=== PATIENT | female | born 1980 | race Caucasian/White ===

== ENCOUNTER 2018-02-27 21:33 | Emergency (ER) | payer OTHER ==
[~2018-02-27] VITALS: Ht 162.6 cm; Wt 77.1 kg
[~2018-02-27 21:33] MED LIST: ALBU90OI6 INH; AZIT500 PO; CHRO200 PO; KADIAN PO; METPRE4DP PO; PRODEXEL PO; Valium5 MG PO
[2018-02-27] MEDS ORDERED: GLIP5 PO (22:15)
[2018-02-27] MEDS ORDERED: FAMO20 PO (22:17)
[2018-02-27] MEDS ORDERED: ALBU90OI INH (23:13)
[2018-02-27] MEDS ORDERED: Prednisone20 MG PO (23:13)
[2018-02-27] MEDS ORDERED: BENZ100A PO (23:13)
== END 2018-02-27 23:21 | disposition home or self-care (01) ==
LOC: ER 21:33
DX: J98.01 Acute bronchospasm (principal); G43.909 Migraine, unspecified, not intractable, without status migrainosus; M79.7 Fibromyalgia; Z88.0 Allergy status to penicillin; Z88.1 Allergy status to other antibiotic agents; Z88.6 Allergy status to analgesic agent; Z79.2 Long term (current) use of antibiotics; Z79.899 Other long term (current) drug therapy; Z98.890 Other specified postprocedural states
CPT/HCPCS: 71046; 94640; 99284

== ENCOUNTER → 2018-03-03 | Outpatient (CLI) | payer OTHER ==
[~2018-03-03] MED LIST changes: +ALBU90OI INH; +BENZ100A PO; +FAMO20 PO; +GLIP5 PO; +Prednisone20 MG PO
== END ==
LOC: LAB 17:14 → LAB SHORT 17:14
DX: E11.65 Type 2 diabetes mellitus with hyperglycemia (principal)
CPT/HCPCS: 83036

== ENCOUNTER 2018-06-21 23:22 | Emergency (ER) | payer OTHER ==
[~2018-06-21] VITALS: Ht 162.6 cm; Wt 72.6 kg
[2018-06-22 01:53] LABS: BASOPHILS ABSOLUTE AUTO 0.02 K/mm3 (0.00-0.23); BASOPHILS PERCENT AUTO 0 % (0-2); EOSINOPHILS ABSOLUTE AUTO 0.22 K/mm3 (0.00-0.68); EOSINOPHILS PERCENT AUTO 3 % (0-6); Hematocrit 41.3 % (33.0-51.0); Hemoglobin 14.3 g/dL (11.5-16.0); IMMATURE GRAN ABSOLUTE AUTO 0.07 K/mm3 (0.00-0.10); IMMATURE GRAN PERCENT AUTO 1 % (0-1); LYMPHOCYTES ABSOLUTE AUTO 2.64 K/mm3 (0.84-5.20); LYMPHOCYTES PERCENT AUTO 34 % (21-46); MONOCYTES ABSOLUTE AUTO 0.48 K/mm3 (0.16-1.47); MONOCYTES PERCENT AUTO 6 % (4-13); Mean Corpuscular HGB 27.7 pg (26.0-34.0); Mean Corpuscular HGB Conc 34.6 g/dL (31.5-36.5); Mean Corpuscular Volume 80 fL (80-100); Mean Platelet Volume 10.4 fL (9.1-12.4); NEUTROPHILS ABSOLUTE AUTO 4.31 K/mm3 (1.96-9.15); NEUTROPHILS PERCENT AUTO 56 % (41-73); Platelet Count 233 K/mm3 (150-400); RDW Coefficient Variation 11.9 % (11.7-14.2); RDW Standard Deviation 34.5 fL (35.1-46.3); Red Blood Cell Count 5.16 M/mm3 (3.80-5.20); White Blood Cell Count 7.74 K/mm3 (4.00-11.30)
[2018-06-22 02:08] LABS: Alanine Aminotransfer (ALT/SGP 34 U/L (12-78); Albumin, Blood 3.7 g/dL (3.4-5.0); Albumin/Globulin Ratio 0.8 (0.8-1.8); Alk Phos 47 U/L (50-136); Anion Gap 11 mmol/L (6-16); Aspartate Aminotrans (AST/SGOT 46 U/L (12-37); Bilirubin, Total 0.6 mg/dL (0.1-1.0); Blood Urea Nitrogen 20 mg/dL (8-24); Bun/Creatinine Ratio 32.5 (12.0-20.0); CO2, Blood 24 mmol/L (21-32); Calcium, Blood 8.9 mg/dL (8.5-10.1); Chloride, Blood 103 mmol/L (98-108); Creatinine, Blood 0.62 mg/dL (0.40-1.00); Globulin, Blood 4.5 g/dL (2.2-4.0); Glomerular Filtration Rate >60 (60-); Glucose, Blood 191 mg/dL (70-99); Potassium, Blood 4.2 mmol/L (3.5-5.5); Sodium, Blood 138 mmol/L (136-145); Total Protein, Blood 8.2 g/dL (6.4-8.2)
[2018-06-22 02:54] LABS: Source, Urine Clean Catch
[2018-06-22 03:08] LABS: Bilirubin, Urine Neg (Neg); Blood, Urine 4+ (Neg); Glucose Qualitative, Urine 3+ (Neg); Ketones, Urine Neg (Neg); Leukocyte Esterase, Urine Neg (Neg); Nitrite, Urine Neg (Neg); Protein, Urine 1+ (Neg); Urobilinogen, Urine NORM (Normal)
[2018-06-22 03:12] LABS: Appearance, Urine Clear (Clear); Color, Urine Yellow (P-Yellow)
[2018-06-22 03:27] LABS: Bacteria Rare /hpf; Red Blood Cells, Urine Rare /hpf (0-2); Squamous Epithelial Cells Mod /hpf (Few); White Blood Cells, Urine Rare /hpf (0-5)
== END 2018-06-22 05:13 | disposition home or self-care (01) ==
LOC: ER 23:22
PROVIDERS: Emergency Medicine
DX: K43.9 Ventral hernia without obstruction or gangrene (principal); Z88.0 Allergy status to penicillin; Z88.2 Allergy status to sulfonamides; Z88.8 Allergy status to other drugs, medicaments and biological substances; Z88.1 Allergy status to other antibiotic agents; Z88.5 Allergy status to narcotic agent; Z79.899 Other long term (current) drug therapy; Z79.84 Long term (current) use of oral hypoglycemic drugs; Z79.51 Long term (current) use of inhaled steroids; Z87.891 Personal history of nicotine dependence
CPT/HCPCS: 36415; 74177; 80053; 81001; 81025; 83690; 85025; 99284-25; Q9967

== ENCOUNTER → 2019-02-10 | Outpatient (CLI) | payer OTHER | END | disposition home or self-care (01) | LOC: LAB 14:17 → LAB SHORT 14:17 | DX: R30.0 Dysuria (principal) | CPT/HCPCS: 87086; 87106 ==

== ENCOUNTER → 2019-06-08 | Outpatient (CLI) | payer OTHER | END | disposition home or self-care (01) | LOC: LAB 14:33 → LAB SHORT 14:33 | DX: N39.0 Urinary tract infection, site not specified (principal) | CPT/HCPCS: 87086 ==

== ENCOUNTER 2020-02-06 23:01 | Emergency (ER) | payer OTHER ==
[~2020-02-06] VITALS: Ht 162.6 cm; Wt 72.6 kg
== END 2020-02-07 03:22 | disposition home or self-care (01) ==
LOC: ER 23:01
DX: S66.912A Strain of unspecified muscle, fascia and tendon at wrist and hand level, left hand, initial encounter (principal); Z88.0 Allergy status to penicillin; Z88.2 Allergy status to sulfonamides; Z79.899 Other long term (current) drug therapy; Z87.891 Personal history of nicotine dependence; X58.XXXA Exposure to other specified factors, initial encounter
CPT/HCPCS: 29125; 73110; 99283-25

== ENCOUNTER → 2020-04-21 | Outpatient (CLI) | payer OTHER | END | disposition home or self-care (01) | LOC: LAB SHORT 15:19 → LAB 15:19 | DX: E11.65 Type 2 diabetes mellitus with hyperglycemia (principal); R30.0 Dysuria | CPT/HCPCS: 82043; 87086 ==

== ENCOUNTER → 2022-05-10 | Outpatient (CLI) | payer OTHER ==
[2022-05-10 18:45] LABS: CHOL/HDL RATIO 5.5; Cholesterol 165 mg/dL (50-200); HDL Cholesterol 30 mg/dL (>39); LDL/HDL RATIO 2.2; Low Density Lipoprotein Chol 65 mg/dL (0-110); Triglycerides 349 mg/dL (30-160); Very Low Density Lipoprot Chol 69 mg/dL (6-32)
== END | disposition home or self-care (01) ==
LOC: LAB SHORT 14:45
PROVIDERS: Hospitalist
DX: E11.65 Type 2 diabetes mellitus with hyperglycemia (principal)
CPT/HCPCS: 80061; 82043; 83036

== ENCOUNTER 2024-11-29 20:18 | Emergency (ER) | payer OTHER ==
[~2024-11-29] VITALS: Ht 160 cm; Wt 72.6 kg
[2024-11-29 20:52] VITALS: BP 120/79
[2024-11-30] MEDS ORDERED: BACITRACIN ZIN1 EAC1 LEFTEYE (00:42)
== END 2024-11-30 00:41 | disposition home or self-care (01) ==
LOC: ER 20:18
DX: H00.016 Hordeolum externum left eye, unspecified eyelid (principal); H01.006 Unspecified blepharitis left eye, unspecified eyelid; J45.909 Unspecified asthma, uncomplicated; Z87.891 Personal history of nicotine dependence; Z79.899 Other long term (current) drug therapy; Z88.0 Allergy status to penicillin; Z88.2 Allergy status to sulfonamides; Z88.1 Allergy status to other antibiotic agents; Z88.5 Allergy status to narcotic agent; Z88.8 Allergy status to other drugs, medicaments and biological substances
CPT/HCPCS: 99282

== ENCOUNTER 2024-12-28 11:03 | Day surgery (SDC) | payer OTHER ==
[~2024-12-28] VITALS: Ht 165.1 cm; Wt 69.6 kg
[~2024-12-28 11:03] MED LIST changes: +BACITRACIN ZIN1 EAC1 LEFTEYE; +FentaNYL Citrate 50 MCG/ML 2 ML Injection ONE; +Midazolam HCl 1MG / ML 2ML Vial ONE; +NS 500 ML IV ONE; +propofoL 20 ML IV ONE
[2024-12-28] MEDS ORDERED: RYBELSUS7 MG PO (11:41)
[2024-12-28] MEDS ORDERED: NS 500 ML IV ONE (11:45)
[2024-12-28] MEDS ORDERED: Dexamethasone Sod Phos 10 MG/ML 1ML VIAL ONE ×2 (11:51→12:06)
[2024-12-28] MEDS ORDERED: Ondansetron HCl 2 MG / ML 2ML Vial ONE ×2 (11:51→12:06)
[2024-12-28] MEDS ORDERED: Ketorolac Tromethamine 30mg Vial ONE (12:11)
--- NOTE | 2024-12-28 12:37 | NUR ---
12/28/24 1237 Jessica Whiting AIRWAY OUT AT 1235. PT O2 SATS 100% ON ROOM AIR AT THIS TIME. REPORT GIVEN TO [email or web address] AT 1236.
[2024-12-28] MEDS ORDERED: Ibuprofen 400 MG Tab ONE (12:53)
--- NOTE | 2024-12-28 12:53 | NUR ---
12/28/24 5053 Jeannine Figueroa PT STATES SHE'S HAVING PAIN TO R WRIST. WHEN ASKED TO RATE PAIN ON SCALE OF 1-10, PT STATES "PAIN SCALES DON'T WORK ON ME." WHEN ASKED IF PT IS HAVING A LITTLE PAIN OR MODERATE PAIN, PT STATES "A LOT OF PAIN." PT CONVERSING W/ STAFF W/ EYES CLOSED. RESPIRATIONS NORMAL & NON-LABORED. VSS, ON RA. PT R HAND ELEVATED & ICED. PT STATES THE ONLY THING THAT WORKS FOR HER IS IBUPROFEN. Kyle RIOS RN, NOTIFYING DR. DESAI REGARDING GETTING AN ORDER FOR IBUPROFEN FOR POST-OP PHASE OF CARE.
[2024-12-28 13:10] VITALS: BP 123/81
== END 2024-12-28 13:28 | disposition home or self-care (01) ==
LOC: ORSCSDS 11:03
PROVIDERS: Orthopaedic Surgery
PROC: 0RBP0ZZ Excision of Left Wrist Joint, Open Approach (ICD-10-PCS; principal; 2024-12-28 12:15)
DX: M67.431 Ganglion, right wrist (principal); Z87.891 Personal history of nicotine dependence; E11.9 Type 2 diabetes mellitus without complications; J45.909 Unspecified asthma, uncomplicated; Z79.84 Long term (current) use of oral hypoglycemic drugs; Z79.899 Other long term (current) drug therapy
CPT/HCPCS: 82947; 88304; A9270; J1100; J1885; J2250; J2405; J2704; J3010; J7040